=== PATIENT | male | born 1970 | race Caucasian/White ===

== ENCOUNTER 2021-04-04 18:21 | Inpatient (IN) | payer MEDICAID, SELFPAY ==
[~2021-04-04] VITALS: Ht 167.6 cm; Wt 75.7 kg
[2021-04-04 19:35] VITALS: BP_SYST 160
[2021-04-04] MEDS ORDERED: PIPERACILLIN/TAZO 3.375 GM in NS 50 ML IV ONE (20:45)
[2021-04-04] MEDS ORDERED: VANCOMYCIN HCL 1,000 MG in NS 250 ML IV ONE (20:45)
[2021-04-04] MEDS ORDERED: VANCOMYCIN HCL 1000 MG/VIAL IV ONE (20:50)
[2021-04-04] MEDS ORDERED: PIPERACILLIN/TAZOBACTAM 3.375 GM/VIAL (ZOSYN) IV ONE (20:50)
[2021-04-04 20:55] LABS: EOSINOPHILS # (AUTO) 0.2 K/uL (0.0-0.4); HEMOGLOBIN 11.8 g/dL (14.0-18.0)
[2021-04-04] MEDS ORDERED: OXYCODONE/ACETAMINOPHEN 5-325 TABLET PO ONE (21:00)
[2021-04-04 21:13] LABS: BASOPHILS # (AUTO) 0.1 K/uL (0.0-0.2); BASOPHILS % (AUTO) 0.8 % (0.0-2.0); EOSINOPHILS % (AUTO) 2.1 % (0.0-4.0); HEMATOCRIT 34.3 % (36-54); LYMPHOCYTES # (AUTO) 1.8 K/uL (1.0-5.5); LYMPHOCYTES % (AUTO) 16.8 % (20.5-51.5); MEAN CORPUSCULAR HEMOGLOBIN 29 pg (27-31); MEAN CORPUSCULAR HGB CONC 34 % (32-36); MEAN CORPUSCULAR VOLUME 84 fL (79.0-98.0); MONOCYTES # (AUTO) 0.8 K/uL (0.0-1.0); MONOCYTES % (AUTO) 6.9 % (1.7-9.3); NEUTROPHILS % (AUTO) 73.4 % (40.0-70.0); PLATELET COUNT (AUTO) 457 K/uL (130-430); RED BLOOD CELL COUNT(AUTO) 4.07 MIL/uL (4.2-6.2); RED CELL DISTRIBUTION WIDTH 13.1 % (9.0-15.0); WHITE BLOOD COUNT (AUTO) 10.9 K/uL (4.8-10.8)
[2021-04-04 21:25] LABS: INR 0.9 (0.80-1.20); PROTHROMBIN TIME 9.6 SECS (9.5-12.5)
[2021-04-04 21:30] LABS: CALCIUM 8.8 mg/dL (8.4-11.0); CREATININE 0.84 mg/dL (0.55-1.30); POTASSIUM 3.9 mmol/L (3.5-5.1)
[2021-04-04 21:36] LABS: ALBUMIN 2.8 g/dL (3.4-4.8); TOTAL BILIRUBIN 0.2 mg/dL (0.0-1.0)
[2021-04-04 22:23] LABS: ERYTHROCYTE SEDIMENTATION RATE 94 MM/HR (0-15)
[2021-04-05] MEDS ORDERED: MORPHINE 4 MG INJ. 4 MG/ML VIAL IVP ONE (01:45)
[2021-04-05] MEDS ORDERED: TEMAZEPAM 15 MG CAPSULE PO PRN (04:00)
[2021-04-05] MEDS ORDERED: ONDANSETRON HCL 4 MG/2 ML VIAL IVP PRN (04:00)
[2021-04-05] MEDS ORDERED: DEXTROSE 50% JECT 50 ML DISP.SYRIN IVP PRN (04:00)
[2021-04-05] MEDS ORDERED: MAG-AL HYDROX/SIMETH 30 ML UDC PO PRN (04:00)
[2021-04-05 06:12] VITALS: BP_SYST 137
[2021-04-05] MEDS: INSULIN REGULAR, HUMAN 100 UNITS/ML, 10 ML VIAL (humuLIN R) SUBCUT PRN ×3 (06:59→17:33)
[2021-04-05 07:49] VITALS: BP_SYST 150
[2021-04-05 09:13] LABS: BILIRUBIN,URINE NEGATIVE (NEGATIVE); CLARITY/URINE CLEAR (CLEAR); COLOR,URINE YELLOW (YELLOW); GLUCOSE,URINE NEGATIVE (NEGATIVE); KETONES,URINE NEGATIVE (NEGATIVE); LEUKOCYTE ESTERASE ,URINE NEGATIVE (NEGATIVE); NITRITE, URINE NEGATIVE (NEGATIVE); PH,URINE 5.5 (5.0-8.0); PROTEIN URINE 1+ (NEGATIVE)
[2021-04-05 09:21] LABS: BLOOD, URINE TRACE (NEGATIVE)
[2021-04-05] MEDS: ENOXAPARIN SODIUM 40 MG/0.4 ML SYRINGE SUBCUT SCH ×2 (09:21→21:22)
[2021-04-05 10:44] LABS: BACTERIA,URINE None Seen /HPF (None Seen); WBC,URINE NONE SEEN /HPF (0-3)
[2021-04-05 12:00] VITALS: BP_SYST 165
[2021-04-05] MEDS: ACETAMINOPHEN 325 MG TABLET PO PRN ×2 (12:04→18:08)
[2021-04-05] MEDS ORDERED: ACETAMINOPHEN 325 MG TABLET PO PRN (14:45)
[2021-04-05 15:31] VITALS: BP_SYST 132
[2021-04-05] MEDS ORDERED: PIPERACILLIN/TAZO 3.375/DEX-IS 50 ML IV SCH (18:00)
[2021-04-05 19:00] VITALS: BP_SYST 136
[2021-04-05] MEDS: GENTAMICIN SULFATE 350 MG in NS 100 ML IV SCH (19:30)
[2021-04-05] MEDS: CILOSTAZOL 50 MG TABLET (PLETAL) PO SCH (21:19)
[2021-04-05] MEDS: traMADol HCL HCL 50 MG TABLET (ULTRAM) PO PRN (21:36)
[2021-04-06] VITALS (8 sets, daily range): BP systolic 102–128
[2021-04-06] MEDS: traMADol HCL HCL 50 MG TABLET (ULTRAM) PO PRN (02:21)
[2021-04-06 06:42] LABS: BASOPHILS # (AUTO) 0.1 K/uL (0.0-0.2); BASOPHILS % (AUTO) 0.6 % (0.0-2.0); EOSINOPHILS # (AUTO) 0.1 K/uL (0.0-0.4); EOSINOPHILS % (AUTO) 0.9 % (0.0-4.0); HEMOGLOBIN 10.7 g/dL (14.0-18.0); LYMPHOCYTES # (AUTO) 1.5 K/uL (1.0-5.5); LYMPHOCYTES % (AUTO) 15.5 % (20.5-51.5); MEAN CORPUSCULAR HEMOGLOBIN 29 pg (27-31); MEAN CORPUSCULAR HGB CONC 35 % (32-36); MEAN CORPUSCULAR VOLUME 83 fL (79.0-98.0); MONOCYTES # (AUTO) 0.9 K/uL (0.0-1.0); MONOCYTES % (AUTO) 8.7 % (1.7-9.3); NEUTROPHILS # (AUTO) 7.4 K/uL (1.8-7.7); NEUTROPHILS % (AUTO) 74.3 % (40.0-70.0); PLATELET COUNT (AUTO) 424 K/uL (130-430); RED BLOOD CELL COUNT(AUTO) 3.72 MIL/uL (4.2-6.2); RED CELL DISTRIBUTION WIDTH 12.9 % (9.0-15.0)
[2021-04-06 06:51] LABS: CALCIUM 8.3 mg/dL (8.4-11.0); CREATININE 0.66 mg/dL (0.55-1.30); POTASSIUM 3.9 mmol/L (3.5-5.1)
[2021-04-06 07:43] LABS: PROTHROMBIN TIME 10.8 SECS (9.5-12.5)
[2021-04-06] MEDS: CILOSTAZOL 50 MG TABLET (PLETAL) PO SCH ×3 (08:59→20:42)
[2021-04-06] MEDS: ENOXAPARIN SODIUM 40 MG/0.4 ML SYRINGE SUBCUT SCH ×3 (09:00→20:38)
[2021-04-06] MEDS: ACETAMINOPHEN 325 MG TABLET PO PRN (15:33)
[2021-04-06] MEDS: INSULIN REGULAR, HUMAN 100 UNITS/ML, 10 ML VIAL (humuLIN R) SUBCUT PRN (16:51)
[2021-04-06] MEDS: GENTAMICIN SULFATE 350 MG in NS 100 ML IV SCH (20:41)
[2021-04-06] MEDS: EMOLLIENT COMBINATION NO.73 78 GM CREAM..G. TP SCH (20:43)
[2021-04-07] VITALS (7 sets, daily range): BP systolic 99–121
[2021-04-07] MEDS: EMOLLIENT COMBINATION NO.73 78 GM CREAM..G. TP SCH ×2 (09:00→21:05)
[2021-04-07] MEDS ORDERED: SEVOFLURANE 15 MIN GAS INH ONE (10:28)
[2021-04-07] MEDS ORDERED: BUPIVACAINE /PF 0.25% 30 ML VIAL INJ ONE (10:28)
[2021-04-07] MEDS ORDERED: WATER FOR IRRIGATION,STERILE 1,000 ML IRRIG.SOLN IR ONE (10:28)
[2021-04-07] MEDS ORDERED: NS 1000 ML IV.SOLN IV ONE (10:28)
[2021-04-07] MEDS ORDERED: ONDANSETRON HCL 4 MG/2 ML VIAL IVP ONE (10:28)
[2021-04-07] MEDS ORDERED: PROPOFOL 200MG/ 20ML VIAL (DIPRIVAN) IV ONE (10:28)
[2021-04-07] MEDS ORDERED: KETOROLAC TROMETHAMINE 30 MG VIAL IVP ONE (10:28)
[2021-04-07] MEDS ORDERED: MORPHINE 4 MG INJ. 4 MG/ML VIAL IVP PRN (11:00)
[2021-04-07] MEDS ORDERED: METOCLOPRAMIDE HCL 10 MG/2 ML VIAL IVP PRN (11:00)
[2021-04-07] MEDS ORDERED: KETOROLAC TROMETHAMINE 30 MG VIAL IVP PRN (11:00)
[2021-04-07] MEDS: ENOXAPARIN SODIUM 40 MG/0.4 ML SYRINGE SUBCUT SCH ×2 (13:08→21:00)
[2021-04-07] MEDS: CILOSTAZOL 50 MG TABLET (PLETAL) PO SCH ×2 (13:08→21:05)
[2021-04-07] MEDS: NACL 0.9% 1,000 ML IV SCH ×2 (13:47→23:58)
[2021-04-07] MEDS: INSULIN REGULAR, HUMAN 100 UNITS/ML, 10 ML VIAL (humuLIN R) SUBCUT PRN ×3 (13:48→21:11)
[2021-04-07] MEDS: CEFAZOLIN 2 GM IVPB PREMIX 50 ML IV SCH ×2 (16:51→23:58)
[2021-04-07] MEDS: traMADol HCL HCL 50 MG TABLET (ULTRAM) PO PRN (20:02)
[2021-04-07] MEDS: GENTAMICIN SULFATE 350 MG in NS 100 ML IV SCH (20:03)
[2021-04-07] MEDS: metroNIDAZOLE 500 mg/NS 100 ML IV SCH (21:05)
[2021-04-07] MEDS ORDERED: CEFAZOLIN 2 GM IVPB PREMIX 50 ML IV ONE (21:40)
[2021-04-08 00:13] VITALS: BP_SYST 118
[2021-04-08 07:12] LABS: BASOPHILS % (AUTO) 0.3 % (0.0-2.0); EOSINOPHILS # (AUTO) 0.2 K/uL (0.0-0.4); EOSINOPHILS % (AUTO) 1.9 % (0.0-4.0); HEMATOCRIT 33.8 % (36-54); HEMOGLOBIN 11.2 g/dL (14.0-18.0); LYMPHOCYTES # (AUTO) 1.7 K/uL (1.0-5.5); LYMPHOCYTES % (AUTO) 18.5 % (20.5-51.5); MEAN CORPUSCULAR HEMOGLOBIN 28 pg (27-31); MEAN CORPUSCULAR HGB CONC 33 % (32-36); MEAN CORPUSCULAR VOLUME 84 fL (79.0-98.0); MONOCYTES # (AUTO) 0.6 K/uL (0.0-1.0); MONOCYTES % (AUTO) 6.8 % (1.7-9.3); NEUTROPHILS # (AUTO) 6.6 K/uL (1.8-7.7); NEUTROPHILS % (AUTO) 72.5 % (40.0-70.0); PLATELET COUNT (AUTO) 466 K/uL (130-430); RED BLOOD CELL COUNT(AUTO) 4.04 MIL/uL (4.2-6.2); WHITE BLOOD COUNT (AUTO) 9.1 K/uL (4.8-10.8)
[2021-04-08 07:31] LABS: ALBUMIN 2.1 g/dL (3.4-4.8); CALCIUM 8.2 mg/dL (8.4-11.0); CREATININE 0.63 mg/dL (0.55-1.30); POTASSIUM 4.6 mmol/L (3.5-5.1); TOTAL BILIRUBIN 0.1 mg/dL (0.0-1.0)
[2021-04-08 08:00] VITALS: BP_SYST 121
[2021-04-08] MEDS: metroNIDAZOLE 500 mg/NS 100 ML IV SCH (09:00)
[2021-04-08] MEDS: NACL 0.9% 1,000 ML IV SCH (09:04)
[2021-04-08] MEDS: CILOSTAZOL 50 MG TABLET (PLETAL) PO SCH ×2 (09:04→20:08)
[2021-04-08] MEDS: traMADol HCL HCL 50 MG TABLET (ULTRAM) PO PRN (09:05)
[2021-04-08] MEDS: ENOXAPARIN SODIUM 40 MG/0.4 ML SYRINGE SUBCUT SCH ×2 (09:07→20:12)
[2021-04-08 12:45] VITALS: BP_SYST 126
[2021-04-08] MEDS: INSULIN REGULAR, HUMAN 100 UNITS/ML, 10 ML VIAL (humuLIN R) SUBCUT PRN ×3 (12:49→20:11)
[2021-04-08] MEDS ORDERED: MULTIVITS,CA,MINERALS/IRON/FA 1 TABLET PO ONE (14:00)
[2021-04-08] MEDS ORDERED: CHOLECALCIFEROL (VITAMIN D3) 2,000 UNIT TABLET PO ONE (14:00)
[2021-04-08] MEDS ORDERED: CHOLECALCIFEROL (VITAMIN D3) 2,000 UNIT TABLET PO SCH (14:45)
[2021-04-08] MEDS ORDERED: MULTIVITS,CA,MINERALS/IRON/FA 1 TABLET PO SCH (14:45)
[2021-04-08] MEDS: EMOLLIENT COMBINATION NO.73 78 GM CREAM..G. TP SCH ×2 (16:22→20:09)
[2021-04-08 16:36] VITALS: BP_SYST 121
[2021-04-08] MEDS: GENTAMICIN SULFATE 350 MG in NS 100 ML IV SCH (19:57)
[2021-04-08 20:00] VITALS: BP_SYST 122
[2021-04-08] MEDS: metroNIDAZOLE 500 MG TABLET PO SCH (20:08)
[2021-04-09] VITALS: BP_SYST 118
[2021-04-09] MEDS: INSULIN REGULAR, HUMAN 100 UNITS/ML, 10 ML VIAL (humuLIN R) SUBCUT PRN ×3 (06:02→20:13)
[2021-04-09] MEDS: traMADol HCL HCL 50 MG TABLET (ULTRAM) PO PRN ×2 (06:05→20:12)
[2021-04-09 07:36] LABS: BASOPHILS % (AUTO) 0.5 % (0.0-2.0); EOSINOPHILS # (AUTO) 0.1 K/uL (0.0-0.4); EOSINOPHILS % (AUTO) 1.5 % (0.0-4.0); HEMATOCRIT 32.2 % (36-54); HEMOGLOBIN 10.7 g/dL (14.0-18.0); LYMPHOCYTES % (AUTO) 20.8 % (20.5-51.5); MEAN CORPUSCULAR HEMOGLOBIN 28 pg (27-31); MEAN CORPUSCULAR HGB CONC 33 % (32-36); MEAN CORPUSCULAR VOLUME 84 fL (79.0-98.0); MONOCYTES # (AUTO) 0.7 K/uL (0.0-1.0); MONOCYTES % (AUTO) 7.3 % (1.7-9.3); NEUTROPHILS # (AUTO) 6.7 K/uL (1.8-7.7); NEUTROPHILS % (AUTO) 69.9 % (40.0-70.0); PLATELET COUNT (AUTO) 487 K/uL (130-430); RED BLOOD CELL COUNT(AUTO) 3.82 MIL/uL (4.2-6.2); RED CELL DISTRIBUTION WIDTH 12.7 % (9.0-15.0); WHITE BLOOD COUNT (AUTO) 9.6 K/uL (4.8-10.8)
[2021-04-09 07:58] LABS: ALBUMIN 2.1 g/dL (3.4-4.8); CALCIUM 8.6 mg/dL (8.4-11.0); CREATININE 0.7 mg/dL (0.55-1.30); POTASSIUM 4.3 mmol/L (3.5-5.1); TOTAL BILIRUBIN 0.1 mg/dL (0.0-1.0)
[2021-04-09 08:00] VITALS: BP_SYST 90
[2021-04-09] MEDS: CILOSTAZOL 50 MG TABLET (PLETAL) PO SCH ×2 (09:29→20:11)
[2021-04-09] MEDS: CHOLECALCIFEROL (VITAMIN D3) 2,000 UNIT TABLET PO SCH (09:29)
[2021-04-09] MEDS: metroNIDAZOLE 500 MG TABLET PO SCH ×2 (09:29→20:11)
[2021-04-09] MEDS: MULTIVITS,CA,MINERALS/IRON/FA 1 TABLET PO SCH (09:30)
[2021-04-09] MEDS: EMOLLIENT COMBINATION NO.73 78 GM CREAM..G. TP SCH ×2 (09:31→20:11)
[2021-04-09] MEDS: ENOXAPARIN SODIUM 40 MG/0.4 ML SYRINGE SUBCUT SCH ×2 (09:34→20:12)
[2021-04-09 12:00] VITALS: BP_SYST 110
[2021-04-09 16:06] VITALS: BP_SYST 127
[2021-04-09] MEDS: metFORMIN HCL 500 MG TABLET PO SCH (17:49)
[2021-04-09 20:00] VITALS: BP_SYST 142
[2021-04-10 00:34] VITALS: BP_SYST 105
[2021-04-10] MEDS: metFORMIN HCL 500 MG TABLET PO SCH ×2 (07:33→18:14)
[2021-04-10 08:13] VITALS: BP_SYST 126
[2021-04-10] MEDS: metroNIDAZOLE 500 MG TABLET PO SCH ×2 (09:46→20:47)
[2021-04-10] MEDS: MULTIVITS,CA,MINERALS/IRON/FA 1 TABLET PO SCH (09:47)
[2021-04-10] MEDS: traMADol HCL HCL 50 MG TABLET (ULTRAM) PO PRN ×2 (09:47→20:57)
[2021-04-10] MEDS: CILOSTAZOL 50 MG TABLET (PLETAL) PO SCH ×2 (09:47→20:47)
[2021-04-10] MEDS: CHOLECALCIFEROL (VITAMIN D3) 2,000 UNIT TABLET PO SCH (09:47)
[2021-04-10] MEDS: EMOLLIENT COMBINATION NO.73 78 GM CREAM..G. TP SCH (09:48)
[2021-04-10] MEDS: ENOXAPARIN SODIUM 40 MG/0.4 ML SYRINGE SUBCUT SCH ×2 (09:49→20:51)
[2021-04-10] MEDS: INSULIN REGULAR, HUMAN 100 UNITS/ML, 10 ML VIAL (humuLIN R) SUBCUT PRN ×2 (11:35→16:27)
[2021-04-10 12:38] VITALS: BP_SYST 99
[2021-04-10 16:41] VITALS: BP_SYST 104
[2021-04-10 20:45] VITALS: BP_SYST 100
[2021-04-10] MEDS: LOSARTAN POTASSIUM 25 MG TABLET PO SCH (20:51)
[2021-04-11] VITALS: BP_SYST 105
[2021-04-11] MEDS: EMOLLIENT COMBINATION NO.73 78 GM CREAM..G. TP SCH ×3 (05:59→20:35)
[2021-04-11 07:19] LABS: BASOPHILS % (AUTO) 0.4 % (0.0-2.0); EOSINOPHILS # (AUTO) 0.2 K/uL (0.0-0.4); EOSINOPHILS % (AUTO) 2.2 % (0.0-4.0); HEMATOCRIT 31.4 % (36-54); HEMOGLOBIN 10.5 g/dL (14.0-18.0); LYMPHOCYTES # (AUTO) 1.6 K/uL (1.0-5.5); LYMPHOCYTES % (AUTO) 20.7 % (20.5-51.5); MEAN CORPUSCULAR HEMOGLOBIN 28 pg (27-31); MEAN CORPUSCULAR HGB CONC 34 % (32-36); MEAN CORPUSCULAR VOLUME 84 fL (79.0-98.0); MONOCYTES # (AUTO) 0.5 K/uL (0.0-1.0); MONOCYTES % (AUTO) 6.5 % (1.7-9.3); NEUTROPHILS # (AUTO) 5.5 K/uL (1.8-7.7); NEUTROPHILS % (AUTO) 70.2 % (40.0-70.0); PLATELET COUNT (AUTO) 523 K/uL (130-430); RED BLOOD CELL COUNT(AUTO) 3.77 MIL/uL (4.2-6.2); RED CELL DISTRIBUTION WIDTH 13.1 % (9.0-15.0); WHITE BLOOD COUNT (AUTO) 7.8 K/uL (4.8-10.8)
[2021-04-11] MEDS: metFORMIN HCL 500 MG TABLET PO SCH ×2 (07:45→18:09)
[2021-04-11] MEDS: traMADol HCL HCL 50 MG TABLET (ULTRAM) PO PRN (07:46)
[2021-04-11 08:27] VITALS: BP_SYST 95
[2021-04-11] MEDS: CILOSTAZOL 50 MG TABLET (PLETAL) PO SCH ×2 (08:59→20:33)
[2021-04-11] MEDS: CHOLECALCIFEROL (VITAMIN D3) 2,000 UNIT TABLET PO SCH (08:59)
[2021-04-11] MEDS: metroNIDAZOLE 500 MG TABLET PO SCH ×2 (08:59→20:33)
[2021-04-11] MEDS: MULTIVITS,CA,MINERALS/IRON/FA 1 TABLET PO SCH (08:59)
[2021-04-11] MEDS: ENOXAPARIN SODIUM 40 MG/0.4 ML SYRINGE SUBCUT SCH ×2 (09:01→20:38)
[2021-04-11 09:38] LABS: ERYTHROCYTE SEDIMENTATION RATE 103 MM/HR (0-15)
[2021-04-11 11:51] LABS: CALCIUM 8.3 mg/dL (8.4-11.0); CREATININE 0.72 mg/dL (0.55-1.30); POTASSIUM 4.3 mmol/L (3.5-5.1)
[2021-04-11 12:50] VITALS: BP_SYST 94
[2021-04-11 16:33] VITALS: BP_SYST 103
[2021-04-11 19:56] VITALS: BP_SYST 102
[2021-04-11] MEDS: LOSARTAN POTASSIUM 25 MG TABLET PO SCH (20:34)
[2021-04-11 23:31] VITALS: BP_SYST 100
[2021-04-12 08:07] VITALS: BP_SYST 95
[2021-04-12] MEDS: metroNIDAZOLE 500 MG TABLET PO SCH ×2 (09:12→21:30)
[2021-04-12] MEDS: MULTIVITS,CA,MINERALS/IRON/FA 1 TABLET PO SCH (09:12)
[2021-04-12] MEDS: CILOSTAZOL 50 MG TABLET (PLETAL) PO SCH ×2 (09:12→21:30)
[2021-04-12] MEDS: metFORMIN HCL 500 MG TABLET PO SCH ×2 (09:12→17:58)
[2021-04-12] MEDS: CHOLECALCIFEROL (VITAMIN D3) 2,000 UNIT TABLET PO SCH (09:13)
[2021-04-12] MEDS: EMOLLIENT COMBINATION NO.73 78 GM CREAM..G. TP SCH ×2 (09:13→21:30)
[2021-04-12] MEDS: ENOXAPARIN SODIUM 40 MG/0.4 ML SYRINGE SUBCUT SCH ×2 (09:18→21:33)
[2021-04-12] MEDS: INSULIN REGULAR, HUMAN 100 UNITS/ML, 10 ML VIAL (humuLIN R) SUBCUT PRN (11:55)
[2021-04-12 12:09] VITALS: BP_SYST 93
[2021-04-12 20:00] VITALS: BP_SYST 102
[2021-04-12] MEDS: LOSARTAN POTASSIUM 25 MG TABLET PO SCH (21:29)
[2021-04-13] VITALS (7 sets, daily range): BP systolic 98–110
[2021-04-13] MEDS: EMOLLIENT COMBINATION NO.73 78 GM CREAM..G. TP SCH ×2 (09:00→20:18)
[2021-04-13] MEDS: metroNIDAZOLE 500 MG TABLET PO SCH ×2 (09:32→20:16)
[2021-04-13] MEDS: MULTIVITS,CA,MINERALS/IRON/FA 1 TABLET PO SCH (09:32)
[2021-04-13] MEDS: CILOSTAZOL 50 MG TABLET (PLETAL) PO SCH ×2 (09:32→20:16)
[2021-04-13] MEDS: CHOLECALCIFEROL (VITAMIN D3) 2,000 UNIT TABLET PO SCH (09:33)
[2021-04-13] MEDS: metFORMIN HCL 500 MG TABLET PO SCH ×2 (09:33→17:36)
[2021-04-13] MEDS: ENOXAPARIN SODIUM 40 MG/0.4 ML SYRINGE SUBCUT SCH (09:36)
[2021-04-13] MEDS: INSULIN REGULAR, HUMAN 100 UNITS/ML, 10 ML VIAL (humuLIN R) SUBCUT PRN ×2 (11:42→20:21)
[2021-04-13] MEDS: LOSARTAN POTASSIUM 25 MG TABLET PO SCH (20:16)
== END 2021-04-13 22:23 | disposition short-term general hospital (02) | DRG 710 ==
LOC: SED 18:21 → SIC 04-05 01:06 → SMU 04-05 01:07
PROVIDERS: ADMIT Internal Medicine; ATTEND Internal Medicine
PROC: 0Y6P0Z0 Detachment at Right 1st Toe, Complete, Open Approach (ICD-10-PCS; principal; 2021-04-07 10:53)
DX: A41.50 Gram-negative sepsis, unspecified (principal); E43 Unspecified severe protein-calorie malnutrition; E11.52 Type 2 diabetes mellitus with diabetic peripheral angiopathy with gangrene; E11.42 Type 2 diabetes mellitus with diabetic polyneuropathy; I96 Gangrene, not elsewhere classified; M86.8X7 Other osteomyelitis, ankle and foot; D64.9 Anemia, unspecified; E11.69 Type 2 diabetes mellitus with other specified complication; E11.65 Type 2 diabetes mellitus with hyperglycemia; Z20.822 Contact with and (suspected) exposure to COVID-19; I10 Essential (primary) hypertension; E78.5 Hyperlipidemia, unspecified; Z68.27 Body mass index [BMI] 27.0-27.9, adult
CPT/HCPCS: 36415; 71045; 73706; 76376; 80048; 80053; 80061; 80170; 81000; 82962; 83036; 83605; 85025; 85610-TC; 85651-TC; 85730-TC; 87040-TC; 87081; 88305; 88311; 93005; 93922; 96365; 96375; 99285; J0690; J0696; J1580; J1650; J1815; J1885; J2270; J2405; J2543; J2704; J3370; J3490; J7030; J7060; Q9967

== ENCOUNTER 2021-05-24 12:22 | Inpatient (IN) | payer MEDICAID, SELFPAY ==
[~2021-05-24] VITALS: Ht 167.6 cm; Wt 74.8 kg
--- NOTE | 2021-05-24 12:30 | NUR ---
Pt triaged and placed in waiting room.
[2021-05-24 13:36] VITALS: BP_SYST 154
--- NOTE | 2021-05-24 16:25 | NUR ---
Patient awake, alert and oriented x 3. Reporting drainage from great toe amputation (done in March) and that area "bleeds" when patient walks. Awaiting MD evaluation.
--- NOTE | 2021-05-24 19:12 | NUR ---
Report given to Ena ECHOLS to assume care of patient
--- NOTE | 2021-05-24 20:30 | NUR ---
Seen by Dr. Balderas with orders given/ carried out.Labs drawn.
[2021-05-24 20:50] LABS: BASOPHILS # (AUTO) 0.1 K/uL (0.0-0.2); BASOPHILS % (AUTO) 0.7 % (0.0-2.0); EOSINOPHILS # (AUTO) 0.2 K/uL (0.0-0.4); EOSINOPHILS % (AUTO) 1.8 % (0.0-4.0); LYMPHOCYTES # (AUTO) 1.8 K/uL (1.0-5.5); LYMPHOCYTES % (AUTO) 16.9 % (20.5-51.5); MEAN CORPUSCULAR HEMOGLOBIN 27 pg (27-31); MEAN CORPUSCULAR HGB CONC 33 % (32-36); MEAN CORPUSCULAR VOLUME 81 fL (79.0-98.0); MONOCYTES # (AUTO) 0.6 K/uL (0.0-1.0); MONOCYTES % (AUTO) 5.3 % (1.7-9.3); NEUTROPHILS # (AUTO) 7.9 K/uL (1.8-7.7); NEUTROPHILS % (AUTO) 75.3 % (40.0-70.0); PLATELET COUNT (AUTO) 509 K/uL (130-430); RED BLOOD CELL COUNT(AUTO) 4.09 MIL/uL (4.2-6.2); RED CELL DISTRIBUTION WIDTH 14.3 % (9.0-15.0); WHITE BLOOD COUNT (AUTO) 10.5 K/uL (4.8-10.8)
[2021-05-24 21:05] LABS: CREATININE 0.63 mg/dL (0.55-1.30)
[2021-05-24 21:16] LABS: ALBUMIN 2.7 g/dL (3.4-4.8); TOTAL BILIRUBIN 0.3 mg/dL (0.0-1.0)
[2021-05-24 21:38] LABS: PROTHROMBIN TIME 10.2 SECS (9.5-12.5)
[2021-05-24 22:25] LABS: BILIRUBIN,URINE NEGATIVE (NEGATIVE); BLOOD, URINE NEGATIVE (NEGATIVE); CLARITY/URINE CLEAR (CLEAR); COLOR,URINE YELLOW (YELLOW); GLUCOSE,URINE NEGATIVE (NEGATIVE); KETONES,URINE NEGATIVE (NEGATIVE); LEUKOCYTE ESTERASE ,URINE NEGATIVE (NEGATIVE); NITRITE, URINE NEGATIVE (NEGATIVE); PH,URINE 5.5 (5.0-8.0); PROTEIN URINE 2+ (NEGATIVE); UROBILINOGEN,URINE 0.2 (0.2-1.0)
[2021-05-24 22:53] LABS: BACTERIA,URINE RARE /HPF (None Seen); MUCUS,URINE None Seen /LPF (None Seen); RBC,URINE 0-3 /HPF (0-3); WBC,URINE 0-3 /HPF (0-3)
[2021-05-25] MEDS ORDERED: VANCOMYCIN HCL 1,000 MG in NS 250 ML IV ONE (01:30)
[2021-05-25] MEDS: NACL 0.9% 1,000 ML IV SCH ×2 (02:30→14:44)
--- NOTE | 2021-05-25 07:10 | NUR ---
REPORT RECEIVED FROM SOLAR PV INSTALLER RN, PT IS RESTING IN JUAN LUIS VIRGEN, NO DISTRESS NOTED, V/S STABLE
--- NOTE | 2021-05-25 07:22 | NUR ---
EMAR REVIEWED AND SOME MEDICATIONS WERE NOT DOCUMENTED. PER PREVIOUS RN, ALL MEDS WERE GIVEN.
[2021-05-25] MEDS ORDERED: POTASSIUM CHLORIDE 20 MEQ TAB.PRT.SR PO PRN (07:30)
[2021-05-25] MEDS ORDERED: ZOLPIDEM TARTRATE 5 MG TABLET PO PRN (07:30)
[2021-05-25] MEDS ORDERED: LORazepam 2 MG/ML VIAL IVP PRN (07:30)
[2021-05-25] MEDS ORDERED: ONDANSETRON HCL 4 MG/2 ML VIAL IVP PRN (07:30)
[2021-05-25] MEDS ORDERED: MAGNESIUM SULFATE 50 ML IV PRN (07:30)
[2021-05-25] MEDS ORDERED: MORPHINE 2 MG/ML INJ. SYRINGE IVP PRN (07:30)
[2021-05-25] MEDS ORDERED: ACETAMINOPHEN 325 MG TABLET PO PRN (07:30)
[2021-05-25] MEDS ORDERED: NALOXONE HCL 0.4 MG/ML AMP (NARCAN) IVP PRN ×2 (07:30)
[2021-05-25] MEDS ORDERED: MUPIROCIN 2% TOPICAL OINTMENT 22 GM NS PRN (07:30)
[2021-05-25] MEDS ORDERED: cefTRIAXone 1 GM IVPB PREMIX 50 ML IV SCH (09:00)
--- NOTE | 2021-05-25 09:01 | NUR ---
BREAKFAST TRAY PROVIDED TO PT
[2021-05-25] MEDS: GABAPENTIN 300 MG CAPSULE PO SCH ×3 (09:41→23:25)
[2021-05-25] MEDS: HEPARIN SODIUM,PORCINE 5,000 UNITS/ML VIAL SUBCUT SCH ×2 (09:41→23:29)
--- NOTE | 2021-05-25 10:30 | NUR ---
PT AMBULATES WITH WALKER TO BATHROOM WITH STEADY GAIT
--- NOTE | 2021-05-25 11:30 | NUR ---
Patient will be admitted to care of DR. VALENTIN. Admitted to TELE unit. Will go to room 116B. Belongings list completed. Complete and up to date summary report printed. SBAR report to be given at bedside with opportunity for questions.
[2021-05-25 12:15] VITALS: BP_SYST 113
--- NOTE | 2021-05-25 12:15 | NUR ---
NOTE Pt arrived to floor from ER via gurney. Pt able to ambulate from gurney to bed in room with his FWW. Pt was oriented to room and nursing routines and procedures. Oriented to call light. Questions/concerns were answered. Call light within reach.
--- NOTE | 2021-05-25 12:46 | NUR ---
CONSULTATION PAGED/CALLED Reason for Consultation: [] R FOOT CELLULITIS; S/P AMPUTATION Person Who was Notified: [] LORENZO Consulting Physician: [] DR SORIA Marketing Planner Specialty: [] GEN SURGEON Ordering Physician: [] DR VALENTIN
[2021-05-25] MEDS: VANCOMYCIN HCL 1,250 MG in NS 250 ML IV SCH (14:44)
[2021-05-25 15:33] VITALS: BP_SYST 113
[2021-05-25 16:00] VITALS: BP_SYST 101
[2021-05-25] MEDS: INSULIN REGULAR, HUMAN 100 UNITS/ML, 10 ML VIAL (humuLIN R) SUBCUT PRN (17:20)
--- NOTE | 2021-05-25 18:50 | NUR ---
Note Pt was checked on q1' and PRN all shift for needs and care.Pt's bed in low position and bed alarm on all shift. Pt's PCR test was sent to lab at 1645. Pt's right big toe incision/wound site was photographed and wrapped with dressing. IV in RAC intact and patent infusing IVF's well. Pt has urinal at bedside to void. Tele unit was applied on admission to floor/bed at 1210pm. No needs noted at this time. Call light within reach.
[2021-05-25 20:00] VITALS: BP_SYST 119
[2021-05-26 00:05] VITALS: BP_SYST 111
[2021-05-26] MEDS: VANCOMYCIN HCL 1,250 MG in NS 250 ML IV SCH ×2 (02:41→15:15)
[2021-05-26] MEDS: NACL 0.9% 1,000 ML IV SCH ×2 (02:42→16:00)
[2021-05-26] MEDS: INSULIN REGULAR, HUMAN 100 UNITS/ML, 10 ML VIAL (humuLIN R) SUBCUT PRN (02:46)
[2021-05-26 06:54] LABS: BASOPHILS % (AUTO) 0.4 % (0.0-2.0); EOSINOPHILS # (AUTO) 0.3 K/uL (0.0-0.4); EOSINOPHILS % (AUTO) 3.1 % (0.0-4.0); HEMATOCRIT 32.2 % (36-54); HEMOGLOBIN 10.6 g/dL (14.0-18.0); LYMPHOCYTES # (AUTO) 1.6 K/uL (1.0-5.5); LYMPHOCYTES % (AUTO) 19.2 % (20.5-51.5); MEAN CORPUSCULAR HEMOGLOBIN 27 pg (27-31); MEAN CORPUSCULAR HGB CONC 33 % (32-36); MEAN CORPUSCULAR VOLUME 83 fL (79.0-98.0); MONOCYTES # (AUTO) 0.5 K/uL (0.0-1.0); MONOCYTES % (AUTO) 5.5 % (1.7-9.3); NEUTROPHILS # (AUTO) 6.1 K/uL (1.8-7.7); NEUTROPHILS % (AUTO) 71.8 % (40.0-70.0); PLATELET COUNT (AUTO) 460 K/uL (130-430); RED CELL DISTRIBUTION WIDTH 14.2 % (9.0-15.0); WHITE BLOOD COUNT (AUTO) 8.5 K/uL (4.8-10.8)
[2021-05-26 07:25] LABS: ALBUMIN 2.1 g/dL (3.4-4.8); CALCIUM 8.3 mg/dL (8.4-11.0); CREATININE 0.65 mg/dL (0.55-1.30); POTASSIUM 4.5 mmol/L (3.5-5.1); TOTAL BILIRUBIN 0.2 mg/dL (0.0-1.0)
--- NOTE | 2021-05-26 07:44 | NUR ---
PATIENTS GLUCOSE CHECK WAS PERFORMED AT 1230, PATIENTS FINGER STICK GLUCOSE LEVEL WAS 214
[2021-05-26 07:53] VITALS: BP_SYST 118
[2021-05-26] MEDS: HEPARIN SODIUM,PORCINE 5,000 UNITS/ML VIAL SUBCUT SCH ×2 (09:00→22:42)
[2021-05-26] MEDS: GABAPENTIN 300 MG CAPSULE PO SCH ×3 (09:00→22:33)
--- NOTE | 2021-05-26 09:34 | NUR ---
Consult ID Right foot osteo Dr. Chaves [phone] S/w [facility] office
--- NOTE | 2021-05-26 09:36 | NUR ---
Consult Surgery Jason Echeverria [phone] S/W [facility] Office
--- NOTE | 2021-05-26 10:44 | NUR ---
Nutrition Update : Robin Scale: 18 noted Pt admitted for L. foot cellulitis. Diet: [facility] BMI: 26.6 kg/m2 RD to follow per nutrition care standards.
[2021-05-26 13:05] VITALS: BP_SYST 138
[2021-05-26] MEDS ORDERED: MIDAZOLAM HCL 5 MG/5 ML VIAL IVP ONE (15:50)
[2021-05-26] MEDS ORDERED: PROPOFOL 200MG/ 20ML VIAL (DIPRIVAN) IV ONE (15:50)
[2021-05-26] MEDS ORDERED: BUPIVACAINE /PF 0.25% 30 ML VIAL INJ ONE (15:50)
[2021-05-26] MEDS ORDERED: NS 1000 ML IV.SOLN IV ONE (15:50)
[2021-05-26] MEDS ORDERED: SEVOFLURANE 15 MIN GAS INH ONE (15:50)
[2021-05-26] MEDS ORDERED: NS IRRIG SOLN 1000 ML IR ONE (15:50)
[2021-05-26] MEDS ORDERED: ONDANSETRON HCL 4 MG/2 ML VIAL IVP PRN (17:00)
[2021-05-26] MEDS ORDERED: fentaNYL CITRATE/PF 100 MCG/2 ML AMP IVP PRN ×2 (17:00)
[2021-05-26] MEDS ORDERED: METOCLOPRAMIDE HCL 10 MG/2 ML VIAL IVP PRN (17:00)
[2021-05-26 18:05] VITALS: BP_SYST 107
--- NOTE | 2021-05-26 18:14 | NUR ---
BACK FROM OR Pt back from OR in no distress, AAOx4, no c/o pain or discomfort. Received report from Sheyla ECHOLS, noted dressing to pt's right foot clean, dry and intact, right foot elevated on pillows. Vital signs taken, stable. Call light within reah.
[2021-05-26] MEDS: CLINDAMYCIN 600 MG in D5W 50 ML IV SCH (19:04)
--- NOTE | 2021-05-26 19:35 | NUR ---
CLOSING NOTE Pt resting quietly in bed with no s/s resp distress, no c/o pain or discomfort. IVPB infusing well to RAC at ordered rate with no s/s infiltration to site. Dressing to right foot clean, dry and intact. Needs met, call light within reach.
[2021-05-26 20:30] VITALS: BP_SYST 135
[2021-05-26] MEDS ORDERED: CEFEPIME 2 GM/VIAL (MAXIPIME) ONE (22:23)
[2021-05-26] MEDS: CEFEPIME 2 GM in D5W 100 ML IV SCH (22:32)
[2021-05-27] VITALS: BP_SYST 132
[2021-05-27] MEDS: MORPHINE 2 MG/ML INJ. SYRINGE IVP PRN (00:43)
[2021-05-27] MEDS: INSULIN REGULAR, HUMAN 100 UNITS/ML, 10 ML VIAL (humuLIN R) SUBCUT PRN ×2 (00:44→12:22)
[2021-05-27] MEDS: CLINDAMYCIN 600 MG in D5W 50 ML IV SCH ×4 (01:02→17:34)
[2021-05-27] MEDS: VANCOMYCIN HCL 1,250 MG in NS 250 ML IV SCH ×2 (03:40→15:35)
[2021-05-27] MEDS: NACL 0.9% 1,000 ML IV SCH ×2 (03:42→16:56)
[2021-05-27 07:40] LABS: BASOPHILS % (AUTO) 0.6 % (0.0-2.0); EOSINOPHILS # (AUTO) 0.2 K/uL (0.0-0.4); HEMATOCRIT 29.6 % (36-54); HEMOGLOBIN 9.9 g/dL (14.0-18.0); LYMPHOCYTES # (AUTO) 1.6 K/uL (1.0-5.5); LYMPHOCYTES % (AUTO) 19.6 % (20.5-51.5); MEAN CORPUSCULAR HEMOGLOBIN 27 pg (27-31); MEAN CORPUSCULAR HGB CONC 33 % (32-36); MEAN CORPUSCULAR VOLUME 81 fL (79.0-98.0); MONOCYTES # (AUTO) 0.6 K/uL (0.0-1.0); MONOCYTES % (AUTO) 7.9 % (1.7-9.3); NEUTROPHILS # (AUTO) 5.7 K/uL (1.8-7.7); NEUTROPHILS % (AUTO) 69.9 % (40.0-70.0); PLATELET COUNT (AUTO) 414 K/uL (130-430); RED BLOOD CELL COUNT(AUTO) 3.65 MIL/uL (4.2-6.2); RED CELL DISTRIBUTION WIDTH 14.3 % (9.0-15.0); WHITE BLOOD COUNT (AUTO) 8.2 K/uL (4.8-10.8)
[2021-05-27 08:09] LABS: CALCIUM 7.9 mg/dL (8.4-11.0); CREATININE 0.53 mg/dL (0.55-1.30)
[2021-05-27 08:17] VITALS: BP_SYST 122
[2021-05-27] MEDS: GABAPENTIN 300 MG CAPSULE PO SCH ×3 (08:28→22:00)
[2021-05-27] MEDS: HEPARIN SODIUM,PORCINE 5,000 UNITS/ML VIAL SUBCUT SCH ×2 (08:29→22:05)
[2021-05-27] MEDS: CEFEPIME 2 GM in D5W 100 ML IV SCH ×2 (09:38→22:00)
[2021-05-27 12:00] VITALS: BP_SYST 128
[2021-05-27 16:25] VITALS: BP_SYST 124
[2021-05-27 19:00] VITALS: BP_SYST 133
[2021-05-27 20:00] VITALS: BP_SYST 120
[2021-05-28] VITALS: BP_SYST 123
[2021-05-28] MEDS: CLINDAMYCIN 600 MG in D5W 50 ML IV SCH ×2 (00:06→05:42)
[2021-05-28] MEDS: VANCOMYCIN HCL 1,250 MG in NS 250 ML IV SCH ×2 (02:47→14:51)
[2021-05-28] MEDS: NACL 0.9% 1,000 ML IV SCH ×2 (05:42→18:00)
[2021-05-28 07:09] VITALS: BP_SYST 123
[2021-05-28 08:05] VITALS: BP_SYST 104
--- NOTE | 2021-05-28 08:05 | NUR ---
Patient stable; resting comfortably in bed with no distress noted at this time.
[2021-05-28] MEDS: GABAPENTIN 300 MG CAPSULE PO SCH ×3 (08:43→20:44)
[2021-05-28] MEDS: HEPARIN SODIUM,PORCINE 5,000 UNITS/ML VIAL SUBCUT SCH ×2 (08:44→20:45)
[2021-05-28] MEDS: CEFEPIME 2 GM in D5W 100 ML IV SCH ×2 (08:47→20:45)
--- NOTE | 2021-05-28 08:47 | NUR ---
Scheduled IV abx, subq, and po medications given per order. Patient stable at this time.
[2021-05-28 08:49] LABS: BASOPHILS % (AUTO) 0.4 % (0.0-2.0); EOSINOPHILS # (AUTO) 0.1 K/uL (0.0-0.4); EOSINOPHILS % (AUTO) 2.2 % (0.0-4.0); HEMATOCRIT 29.1 % (36-54); HEMOGLOBIN 9.6 g/dL (14.0-18.0); LYMPHOCYTES # (AUTO) 2.6 K/uL (1.0-5.5); MEAN CORPUSCULAR HEMOGLOBIN 27 pg (27-31); MEAN CORPUSCULAR HGB CONC 33 % (32-36); MEAN CORPUSCULAR VOLUME 81 fL (79.0-98.0); MONOCYTES # (AUTO) 0.7 K/uL (0.0-1.0); MONOCYTES % (AUTO) 10.5 % (1.7-9.3); NEUTROPHILS # (AUTO) 3.3 K/uL (1.8-7.7); NEUTROPHILS % (AUTO) 48.9 % (40.0-70.0); PLATELET COUNT (AUTO) 415 K/uL (130-430); RED BLOOD CELL COUNT(AUTO) 3.62 MIL/uL (4.2-6.2); RED CELL DISTRIBUTION WIDTH 14.3 % (9.0-15.0); WHITE BLOOD COUNT (AUTO) 6.8 K/uL (4.8-10.8)
[2021-05-28 09:15] LABS: CALCIUM 8.1 mg/dL (8.4-11.0); CREATININE 0.53 mg/dL (0.55-1.30)
--- NOTE | 2021-05-28 09:37 | NUR ---
Patient stable; resting comfortably in bed with no distress noted.
--- NOTE | 2021-05-28 10:32 | NUR ---
Discharge Planning: DCP faxed pt referral to [facility]-[phone] N-[phone] DCP to follow up. Addendum: 05/28/21 at 1645 by Ofelia Diego DP DCP followed up with [facility]-[phone] [phone] also called [phone] opt#3 no progress reaching a CM.
--- NOTE | 2021-05-28 10:35 | NUR ---
Patient stable; resting comfortably in bed with eyes closed. No distress noted at this time.
--- NOTE | 2021-05-28 12:07 | NUR ---
Checked blood sugar: 209 mg/dl - will cover per sliding scale. Patient stable at this time.
[2021-05-28 12:10] VITALS: BP_SYST 124
--- NOTE | 2021-05-28 12:50 | NUR ---
Patient resting comfortably in bed with Dr. Sharpe at bedside.
--- NOTE | 2021-05-28 13:00 | NUR ---
Covered per sliding scale. Patient stable; resting comfortably in bed.
[2021-05-28] MEDS: INSULIN REGULAR, HUMAN 100 UNITS/ML, 10 ML VIAL (humuLIN R) SUBCUT PRN ×2 (13:02→18:56)
--- NOTE | 2021-05-28 14:40 | NUR ---
WOUND EVALUATION: Late note for 1440 secondary to patient care. Wound Consult received from Dr. Bourgeois. Thank you, Dr. Bourgeois, for the consult. Patient received in a [place] Bed with an Isoflex BRAD mattress, awake, alert, and oriented. Patient is able to turn in bed independently. Robin Score is a 17. Past Medical History: Diabetes Mellitus, Hypertension, Dyslipidemia, Peripheral Vascular Disease, right toe amputation in March,. Recent Labs: WBC 6.8, RBC 3.62, hemoglobin 9.6, hematocrit 29.1, ESR 99, BUN 12, creatinine 0.53, GFR 174, POC glucose 209, calcium 8.1, alkaline phosphatase 126, albumin 2.1. Microbiology: Blood culture results x2 in progress. Urine culture results negative. Wound culture of foot results in progress. Surgical wound culture results in progress. MRSA screen results negative. Intrinsic factors that delay wound healing: Diabetes Mellitus, Peripheral Vascular Disease, Extrinsic factors that delay wound healing: Decreased mobility. Wound Assessment: 1. Right Foot First Metatarsal head, Medial aspect: Diabetic Ulcer surgical wound site (s/p right toe amputation in March,), present on admission. Wound is s/p debridement by Dr. Bourgeois on 05/26/2021. Wound site is surgically closed with sutures and scattered black scab material. Small open area, possibly dehisced with 100% red tissue. No odor, scant sanguineous drainage. Meryl-wound intact. Open area measures 0.5 cm x 6.5 cm. Recommend: Cleanse wound with normal saline. Apply SurePrep to meryl-wound. Apply Venelex ointment to only open wound area(s). Cover with foam dressing and wrap with same Justin wrap used in site 2. Perform wound care daily, and as needed for dressing soiling or dislodgement. 2. Right Foot Fifth Metatarsal head, Plantar aspect: Diabetic ulcer, present on admission. Wound bed has 45% black eschar, 50% dark red tissue, 5% yellow tissue. No odor, scant sanguineous drainage. Periwound intact, callused. Wound measures 4.1 cm x 4.8 cm. Recommend: Cleanse wound with normal saline. Apply SurePrep to meryl-wound. Apply Venelex ointment to wound bed. Cover with foam dressing and wrap with same Justin wrap used in site 1. Perform wound care daily, and as needed for dressing soiling or dislodgement. Also recommend: Encourage patient to self-reposition every 2 hours. Off-load pressure areas with pillows for pressure re-distribution. Offload, elevate and float bilateral heels with pillows. Perform skin care and monitor skin integrity Q shift. Recommend same treatment for home with possible home health: Cleanse wound with normal saline. Apply SurePrep to meryl-wound. Apply Venelex ointment to wound bed. Cover with foam dressing and wrap with same Justin wrap used in site 1. Perform wound care daily, and as needed for dressing soiling or dislodgement.
--- NOTE | 2021-05-28 14:40 | NUR ---
Patient stable with Jeff (wound care) at bedside.
[2021-05-28] MEDS ORDERED: CLOPIDOGREL BISULFATE 75 MG TABLET PO ONE (14:45)
[2021-05-28] MEDS ORDERED: ASPIRIN 81 MG TABLET(ECOTRIN) PO ONE (14:45)
--- NOTE | 2021-05-28 14:52 | NUR ---
Scheduled IV abx and po medications given per order. Patient stable at this time.
[2021-05-28 16:10] VITALS: BP_SYST 122
--- NOTE | 2021-05-28 18:24 | NUR ---
Checked blood sugar: 184 mg/dl - will cover per sliding scale. Patient stable throughout shift. Addendum: 05/28/21 at 1857 by Lanette Donnelly RN Covered per sliding scale: 2 units
[2021-05-28] MEDS: BALSAM PERU/CASTOR OIL 56.7 GM OINT...G. TP SCH (18:55)
--- NOTE | 2021-05-28 18:55 | NUR ---
Dressing changed on right foot per wound care instructions. Patient tolerated well.
[2021-05-28 19:00] VITALS: BP_SYST 110
[2021-05-28] MEDS: MORPHINE 2 MG/ML INJ. SYRINGE IVP PRN (20:54)
[2021-05-29] VITALS: BP_SYST 133
[2021-05-29] MEDS: NACL 0.9% 1,000 ML IV SCH ×2 (06:09→20:37)
[2021-05-29] MEDS: VANCOMYCIN HCL 1,250 MG in NS 250 ML IV SCH ×2 (06:10→15:01)
[2021-05-29 07:48] LABS: BASOPHILS % (AUTO) 0.7 % (0.0-2.0); EOSINOPHILS # (AUTO) 0.2 K/uL (0.0-0.4); EOSINOPHILS % (AUTO) 2.9 % (0.0-4.0); HEMOGLOBIN 10.1 g/dL (14.0-18.0); LYMPHOCYTES % (AUTO) 28.5 % (20.5-51.5); MEAN CORPUSCULAR HEMOGLOBIN 27 pg (27-31); MEAN CORPUSCULAR HGB CONC 34 % (32-36); MEAN CORPUSCULAR VOLUME 80 fL (79.0-98.0); MONOCYTES # (AUTO) 0.5 K/uL (0.0-1.0); NEUTROPHILS # (AUTO) 4.2 K/uL (1.8-7.7); NEUTROPHILS % (AUTO) 60.9 % (40.0-70.0); PLATELET COUNT (AUTO) 429 K/uL (130-430); RED BLOOD CELL COUNT(AUTO) 3.74 MIL/uL (4.2-6.2); RED CELL DISTRIBUTION WIDTH 14.1 % (9.0-15.0); WHITE BLOOD COUNT (AUTO) 6.9 K/uL (4.8-10.8)
[2021-05-29 08:00] VITALS: BP_SYST 103
[2021-05-29 09:28] LABS: CALCIUM 8.3 mg/dL (8.4-11.0); CREATININE 0.67 mg/dL (0.55-1.30); POTASSIUM 4.3 mmol/L (3.5-5.1)
[2021-05-29] MEDS: CEFEPIME 2 GM in D5W 100 ML IV SCH ×2 (10:18→20:40)
[2021-05-29] MEDS: CLOPIDOGREL BISULFATE 75 MG TABLET PO SCH (10:19)
[2021-05-29] MEDS: ASPIRIN 81 MG TABLET(ECOTRIN) PO SCH (10:19)
[2021-05-29] MEDS: GABAPENTIN 300 MG CAPSULE PO SCH ×3 (10:19→20:37)
[2021-05-29] MEDS: HEPARIN SODIUM,PORCINE 5,000 UNITS/ML VIAL SUBCUT SCH ×2 (10:20→20:42)
[2021-05-29] MEDS: INSULIN REGULAR, HUMAN 100 UNITS/ML, 10 ML VIAL (humuLIN R) SUBCUT PRN ×2 (12:08→16:42)
[2021-05-29 12:27] VITALS: BP_SYST 125
[2021-05-29] MEDS: BALSAM PERU/CASTOR OIL 56.7 GM OINT...G. TP SCH (15:08)
--- NOTE | 2021-05-29 15:36 | NUR ---
Dietitian Recommendations * [facility] diet, Perez BID, Prosource BID (supplements yield 300 kcal/day, 35 gm protein/day) ANIBAL, MAKAYLA Please refer to Nutrition Assessment for details. Addendum: 05/29/21 at [address] Amended: Links added.
[2021-05-29 16:44] VITALS: BP_SYST 115
--- NOTE | 2021-05-29 18:00 | NUR ---
NOTES 0800- IV ON LAC DC'D, IV FLUIDS TRANSFERRED TO RIGHT UPPER ARM PICCLINE. 1200- TOOK LUNCH 1500- SEEN BY DR FERNANDO, FOR V DOPPLER DUE TO PREVIOUS IV SITE SWOLLEN BELOW THE PICCLINE. 1700- NEW DRESSING CHANGED ON RIGHT FOOT AREA. PATIENT HAS OLD SORE ON BOTH LOWER EXTREMITIES/ SCAB LE KNEE.
[2021-05-29 20:00] VITALS: BP_SYST 123
[2021-05-30] VITALS: BP_SYST 125
[2021-05-30] MEDS: VANCOMYCIN HCL 1,250 MG in NS 250 ML IV SCH ×2 (06:17→16:04)
[2021-05-30 07:44] LABS: BASOPHILS % (AUTO) 0.4 % (0.0-2.0); EOSINOPHILS # (AUTO) 0.2 K/uL (0.0-0.4); EOSINOPHILS % (AUTO) 3.5 % (0.0-4.0); HEMATOCRIT 29.6 % (36-54); HEMOGLOBIN 9.8 g/dL (14.0-18.0); LYMPHOCYTES % (AUTO) 29.6 % (20.5-51.5); MEAN CORPUSCULAR HEMOGLOBIN 27 pg (27-31); MEAN CORPUSCULAR HGB CONC 33 % (32-36); MEAN CORPUSCULAR VOLUME 81 fL (79.0-98.0); MONOCYTES # (AUTO) 0.5 K/uL (0.0-1.0); MONOCYTES % (AUTO) 7.1 % (1.7-9.3); NEUTROPHILS # (AUTO) 4.1 K/uL (1.8-7.7); NEUTROPHILS % (AUTO) 59.4 % (40.0-70.0); PLATELET COUNT (AUTO) 412 K/uL (130-430); RED BLOOD CELL COUNT(AUTO) 3.65 MIL/uL (4.2-6.2); RED CELL DISTRIBUTION WIDTH 14.4 % (9.0-15.0); WHITE BLOOD COUNT (AUTO) 6.9 K/uL (4.8-10.8)
[2021-05-30 07:53] LABS: CALCIUM 8.1 mg/dL (8.4-11.0); CREATININE 0.59 mg/dL (0.55-1.30); POTASSIUM 3.8 mmol/L (3.5-5.1)
[2021-05-30 08:00] VITALS: BP_SYST 107
[2021-05-30] MEDS: NACL 0.9% 1,000 ML IV SCH ×2 (08:30→23:26)
[2021-05-30] MEDS: GABAPENTIN 300 MG CAPSULE PO SCH ×3 (08:30→20:42)
[2021-05-30] MEDS: CEFEPIME 2 GM in D5W 100 ML IV SCH ×2 (08:30→20:42)
[2021-05-30] MEDS: CLOPIDOGREL BISULFATE 75 MG TABLET PO SCH (08:31)
[2021-05-30] MEDS: ASPIRIN 81 MG TABLET(ECOTRIN) PO SCH (08:31)
[2021-05-30] MEDS: DOCUSATE SODIUM 100 MG CAPSULE PO PRN (08:32)
[2021-05-30] MEDS: HEPARIN SODIUM,PORCINE 5,000 UNITS/ML VIAL SUBCUT SCH ×2 (08:33→20:46)
[2021-05-30] MEDS: BALSAM PERU/CASTOR OIL 56.7 GM OINT...G. TP SCH (08:44)
[2021-05-30] MEDS: INSULIN REGULAR, HUMAN 100 UNITS/ML, 10 ML VIAL (humuLIN R) SUBCUT PRN ×3 (12:11→20:53)
[2021-05-30 16:00] VITALS: BP_SYST 110
--- NOTE | 2021-05-30 17:00 | NUR ---
NOTES 0800- TOOKE BREAKFAST, DENIES PAIN 1200- SEEN BY DR CHANG, STILL WITH ANTECUBITAL AREA FROM PREVIOUS IV SITE TENDER, APPLIED WARM COMPRESS 1700 - DRESSING CHANGED ON RIIGHT FOOT.
[2021-05-30 20:00] VITALS: BP_SYST 121
[2021-05-30] MEDS: metroNIDAZOLE 500 mg/NS 100 ML IV SCH (23:23)
[2021-05-31 00:10] VITALS: BP_SYST 114
--- NOTE | 2021-05-31 02:37 | NUR ---
1999:INITIAL NOTES: PT IS AWAKE , ALERT AND ORIENTED , NOT IN ANY ACUTE DISTRESS; VITALS ARE STABLE ; ASSESSMENT COMPLETED ; NOTICED DRESSING TO THE R FOOT , PT STATED HE FEELS LIKE HIS LEG IS NUMB , ABLE TO FEEL THE TOUCH , PT IS DIABETIC ; PICC LINE TO RIGHT UPPER ARM , DOUBLE LUMEN ; WITH GOOD BLOOD RETURN ; IV FLUID IS INFUSING WELL . BED IN LOW AND LOCK POSITION , CALL PATTERSON IN REACH ; ENCOURAGED PT TO CALL FOR ANY ASSIST ;WILL CONTINUE TO MONITOR PT . 0010: PT IS COMFORTABLE , SLEEPING , RESPIRATION IS EVEN AND NON LABORED ; VITALS CHECKED AND STABLE . Addendum: 05/31/21 at 0355 by Soy Hernandez RN AMENDING TO 1999 NOTE: PTS R AC AND ABOVE (BELOW THE PICC LINE SITE )IS RED AND HARD TO TOUCH , IS AWARE ; PT HAD V DOPPLER FOR THAT ARM AND NO SIGNS OF DVT EXCEPT BRACHIAL BASILIC VEIN NOT VISUALIZED , PER REPORT INÉS ECHOLS ALSO CHECKED IT AND PER REPORT PICCLINE IS OK TO USE IT IS AT THE OLD IV ACCESS SITE .
[2021-05-31] MEDS: metroNIDAZOLE 500 mg/NS 100 ML IV SCH ×3 (06:48→22:52)
--- NOTE | 2021-05-31 07:44 | NUR ---
CLOSING NOTES: PT IS AWAKE , NOT IN ANY ACUTE DISTRESS; REPORT GIVEN TO RN . ALL NEEDS ATTENDED .
[2021-05-31 08:08] VITALS: BP_SYST 99
[2021-05-31 08:38] LABS: BASOPHILS % (AUTO) 0.6 % (0.0-2.0); EOSINOPHILS # (AUTO) 0.2 K/uL (0.0-0.4); HEMATOCRIT 29.5 % (36-54); HEMOGLOBIN 9.7 g/dL (14.0-18.0); LYMPHOCYTES # (AUTO) 2.3 K/uL (1.0-5.5); LYMPHOCYTES % (AUTO) 34.4 % (20.5-51.5); MEAN CORPUSCULAR HEMOGLOBIN 27 pg (27-31); MEAN CORPUSCULAR HGB CONC 33 % (32-36); MEAN CORPUSCULAR VOLUME 81 fL (79.0-98.0); MONOCYTES # (AUTO) 0.5 K/uL (0.0-1.0); MONOCYTES % (AUTO) 7.1 % (1.7-9.3); NEUTROPHILS # (AUTO) 3.7 K/uL (1.8-7.7); NEUTROPHILS % (AUTO) 54.9 % (40.0-70.0); PLATELET COUNT (AUTO) 415 K/uL (130-430); RED BLOOD CELL COUNT(AUTO) 3.64 MIL/uL (4.2-6.2); RED CELL DISTRIBUTION WIDTH 14.4 % (9.0-15.0); WHITE BLOOD COUNT (AUTO) 6.8 K/uL (4.8-10.8)
[2021-05-31] MEDS ORDERED: CEFE2FRO IV (08:41)
[2021-05-31] MEDS ORDERED: METR-154 PO (08:41)
[2021-05-31] MEDS ORDERED: LACT1CAP62 PO (08:41)
[2021-05-31] MEDS ORDERED: ASPI-1393 PO (08:43)
[2021-05-31] MEDS ORDERED: CLOP75TA32 PO (08:43)
[2021-05-31] MEDS ORDERED: LIP20 PO (08:43)
[2021-05-31 08:53] LABS: CALCIUM 8.1 mg/dL (8.4-11.0); CREATININE 0.58 mg/dL (0.55-1.30); TOTAL BILIRUBIN 0.2 mg/dL (0.0-1.0)
[2021-05-31] MEDS: CLOPIDOGREL BISULFATE 75 MG TABLET PO SCH (09:24)
[2021-05-31] MEDS: ASPIRIN 81 MG TABLET(ECOTRIN) PO SCH (09:24)
[2021-05-31] MEDS: GABAPENTIN 300 MG CAPSULE PO SCH ×3 (09:24→21:08)
[2021-05-31] MEDS: CEFEPIME 2 GM in D5W 100 ML IV SCH ×2 (09:25→21:08)
[2021-05-31] MEDS: HEPARIN SODIUM,PORCINE 5,000 UNITS/ML VIAL SUBCUT SCH ×2 (09:38→21:09)
--- NOTE | 2021-05-31 10:48 | NUR ---
Discharge Planning: JVP faxed pt order for IV Meds to [facility] [phone] to follow up Addendum: 05/31/21 at 1602 by Ofelia MAURICIO JVP faxed pt referral to [facility] [phone] to follow up
[2021-05-31] MEDS: INSULIN REGULAR, HUMAN 100 UNITS/ML, 10 ML VIAL (humuLIN R) SUBCUT PRN ×3 (12:02→21:19)
[2021-05-31 12:41] VITALS: BP_SYST 124
--- NOTE | 2021-05-31 13:44 | NUR ---
LATE ENTRY DUE TO CARE 0800- PT STABLE NOT IN ACUTE DISTRESS. VITALS STABLE. DENIES ANY PAIN OR ORTHER DISCOMFORT. IVF INFUSING WELL. INDIGO PICC LINE DRESSING CLEAN DRY AND INTACT. FLUSHED WELL WITH GOOD BLOOD RETURN.CALL LIGHT WITHJIN REACH. POC DISCUSSES WITH PT. VERBAL;IZED UNDERSTANDING. 1000- SEEN BY DR VALENTIN. PT AMBULATED TO BATHROOM WITH STADY GAIT. 1300- PT STABLE NOT IN ACUTE DISTRESS.
[2021-05-31] MEDS: BALSAM PERU/CASTOR OIL 56.7 GM OINT...G. TP SCH (15:09)
--- NOTE | 2021-05-31 15:16 | NUR ---
CM: Discharge barrier: no accepting home health yet, IV ABX is being set up . Pt can be discharged once the HH is arranged.
[2021-05-31 15:35] VITALS: BP_SYST 121
--- NOTE | 2021-05-31 16:00 | NUR ---
WOUND RE-EVALUATION: Late note for 1600 secondary to patient care. Wound Consult received from Dr. Bourgeois. Thank you, Dr. Bourgeois, for the consult. Patient received in a [place] Bed with an Isoflex BRAD mattress, awake, alert, and oriented. Patient is able to turn in bed independently. Robin Score is a 15. Past Medical History: Diabetes Mellitus, Hypertension, Dyslipidemia, Peripheral Vascular Disease, right toe amputation in March,. Microbiology: Blood culture results x2 negative. Wound culture of foot results positive for Proteus vulgaris and Staph aureus. Surgical wound culture results positive for Proteus vulgaris, Klebsiella oxytoca and Staph aureus (Aerobic), and Bacteroides fragilis (beta-lactamase positive, Anaerobic). Intrinsic factors that delay wound healing: Diabetes Mellitus, Peripheral Vascular Disease, Extrinsic factors that delay wound healing: Decreased mobility. Wound Assessment: 1. Right Foot First Metatarsal head, Medial aspect: Diabetic Ulcer surgical wound site (s/p right toe amputation in March,), present on admission. Wound is s/p debridement by Dr. Bourgeois on 05/26/2021. Wound site is surgically closed with sutures and scattered black scab material. Small open area, with 50% dark red tissue, and 50% yellow. Site is macerated. No odor, scant sanguineous drainage. Meryl-wound intact. Site measures 1.0 cm x 7.5 cm. Recommend: Cleanse wound with normal saline. Apply SurePrep to meryl-wound. Apply alginate dressing to entire incision site, and wrap with same Justin wrap used in site 2. Perform wound care daily, and as needed for dressing soiling or dislodgement. 2. Right Foot Fifth Metatarsal head, Plantar aspect: Diabetic ulcer, present on admission. Wound bed has 70% pink tissue, 3% yellow tissue (wound bed is circular with 45% black eschar vs black callus on lateral border of wound. No odor, scant sanguineous drainage. Periwound intact, callused. Wound measures 2.9 cm x 3.2 cm. Recommend: Cleanse wound with normal saline. Apply SurePrep to meryl-wound. Apply Venelex ointment to wound bed. Cover with foam dressing and wrap with same Justin wrap used in site 1. Perform wound care daily, and as needed for dressing soiling or dislodgement. 3. Right Dorsal Foot: Area of dark discolored skin that was on last assessment firm. Site now has wrinkly skin with soft, boggy feel. No odor, no drainage. Site measures 3.1 cm x 2.4 cm. Recommend: Apply alginate dressing to site, and wrap with same Justin wrap used in sites 1 and 2. Perform site care daily, and as needed for dressing soiling or dislodgement. Also recommend: Encourage patient to self-reposition every 2 hours. Off-load pressure areas with pillows for pressure re-distribution. Offload, elevate and float bilateral heels with pillows. Perform skin care and monitor skin integrity Q shift. Recommend same treatments for home with possible home health.
--- NOTE | 2021-05-31 19:30 | NUR ---
CLOSING NOTES PT STABLE NOT IN ACUTE DISTRESS. REPORT GIVEN TO RN ALL NEEDS ATTNDED.
[2021-05-31 20:35] VITALS: BP_SYST 104
[2021-06-01 00:55] VITALS: BP_SYST 105
[2021-06-01] MEDS: metroNIDAZOLE 500 mg/NS 100 ML IV SCH ×3 (06:20→22:32)
[2021-06-01] MEDS: INSULIN REGULAR, HUMAN 100 UNITS/ML, 10 ML VIAL (humuLIN R) SUBCUT PRN ×3 (06:25→16:12)
--- NOTE | 2021-06-01 08:03 | NUR ---
Opening notes: Patient sitting on bed eating breakfast. breathing even and non labored to RA. Denies any discomfort at this time. Fall, safety and aspiration measures reinforced. Call light within reach.
[2021-06-01 08:15] VITALS: BP_SYST 105
--- NOTE | 2021-06-01 09:13 | NUR ---
Discharge Planning: DCP followed up with pt order for IV Meds to [facility] [phone] DCP spoke to [facility] accepting pt need RX order, DCP to follow up DCP followed up with pt referral for intake [facility]-[phone], DCP to follow up. Addendum: 06/01/21 at 1025 by Ofelia MAURICIO JVP followed up with pt referral for intake [facility]-[phone] declined due to insurance. STANLEY faxed pt referral to [facility] [phone] JV to follow up. Addendum: 06/01/21 at 1514 by Ofelia Diego DP STANLEY followed up on pt referral to [facility] [phone] cannot take wound care pt. DCP faxed to [phone], clinically pt accepted waiting for auth.
[2021-06-01] MEDS: ASPIRIN 81 MG TABLET(ECOTRIN) PO SCH (09:28)
[2021-06-01] MEDS: CLOPIDOGREL BISULFATE 75 MG TABLET PO SCH (09:28)
[2021-06-01] MEDS: GABAPENTIN 300 MG CAPSULE PO SCH ×3 (09:28→20:46)
[2021-06-01] MEDS: CEFEPIME 2 GM in D5W 100 ML IV SCH ×2 (09:29→20:47)
[2021-06-01] MEDS: HEPARIN SODIUM,PORCINE 5,000 UNITS/ML VIAL SUBCUT SCH ×2 (09:30→20:50)
[2021-06-01] MEDS: BALSAM PERU/CASTOR OIL 56.7 GM OINT...G. TP SCH (09:31)
[2021-06-01 12:15] VITALS: BP_SYST 107
--- NOTE | 2021-06-01 14:29 | NUR ---
WOUND CARE DONE: WOUND CARE DONE AND PHOTO TAKEN.
[2021-06-01 17:00] VITALS: BP_SYST 111
--- NOTE | 2021-06-01 18:38 | NUR ---
CLOSING NOTES: Patient sitting on bed eating dinner. No s/s of acute distress noted. Fall, safety and aspiration measures provided. Call light within reach.
--- NOTE | 2021-06-01 20:00 | NUR ---
CHANGE OF SHIFT; checked pt. sleeping, no complaints of discomfort at this time. awakened, pt. was sleeping. IV PICC line on rt. upper arm. S/P debridement of rt. great toe, dressing intact. repositioned self. schedule for IV antibiotics. call light within reach.
[2021-06-01 20:15] VITALS: BP_SYST 93
--- NOTE | 2021-06-01 21:00 | NUR ---
NOTES: BS checked 223. sliding scale coverage given.
--- NOTE | 2021-06-02 01:30 | NUR ---
NOTES: pt. sleeping when checked. IV tko.
[2021-06-02 02:00] VITALS: BP_SYST 98
--- NOTE | 2021-06-02 04:00 | NUR ---
NOTES: condition unchanged. continue to monitor.
[2021-06-02] MEDS: metroNIDAZOLE 500 mg/NS 100 ML IV SCH ×3 (05:14→22:09)
[2021-06-02] MEDS: INSULIN REGULAR, HUMAN 100 UNITS/ML, 10 ML VIAL (humuLIN R) SUBCUT PRN ×4 (06:33→22:23)
--- NOTE | 2021-06-02 06:46 | NUR ---
CLOSING NOTES; IV antibiotic in progress. needs attended. rt. foot dressing intact, keep elevated with pillow. BS checked 157, sliding scale coverage given. for further care and assistance. call light within reach.
[2021-06-02 08:00] VITALS: BP_SYST 92
[2021-06-02] MEDS: GABAPENTIN 300 MG CAPSULE PO SCH ×3 (08:34→22:11)
[2021-06-02] MEDS: DOCUSATE SODIUM 100 MG CAPSULE PO PRN (08:34)
[2021-06-02] MEDS: CEFEPIME 2 GM in D5W 100 ML IV SCH ×2 (08:34→23:40)
[2021-06-02] MEDS: CLOPIDOGREL BISULFATE 75 MG TABLET PO SCH (08:35)
[2021-06-02] MEDS: ASPIRIN 81 MG TABLET(ECOTRIN) PO SCH (08:35)
[2021-06-02] MEDS: BALSAM PERU/CASTOR OIL 56.7 GM OINT...G. TP SCH (08:36)
[2021-06-02] MEDS: HEPARIN SODIUM,PORCINE 5,000 UNITS/ML VIAL SUBCUT SCH ×2 (08:36→22:11)
[2021-06-02 12:37] VITALS: BP_SYST 98
--- NOTE | 2021-06-02 15:08 | NUR ---
alert, oriented, no complaint of pain, nor discomfort on R foot, both lateral sides, wounds cleansed and new dressings applied. on double abx ( Cefepime and flagyl ivpb)
[2021-06-02 16:00] VITALS: BP_SYST 110
[2021-06-02 20:00] VITALS: BP_SYST 100
[2021-06-02] MEDS ORDERED: CEFEPIME 2 GM/VIAL (MAXIPIME) ONE (23:18)
[2021-06-03 05:59] VITALS: BP_SYST 105
[2021-06-03] MEDS: metroNIDAZOLE 500 mg/NS 100 ML IV SCH ×2 (06:47→14:00)
[2021-06-03] MEDS: INSULIN REGULAR, HUMAN 100 UNITS/ML, 10 ML VIAL (humuLIN R) SUBCUT PRN ×2 (06:55→12:05)
[2021-06-03 08:00] VITALS: BP_SYST 98
[2021-06-03] MEDS: HEPARIN SODIUM,PORCINE 5,000 UNITS/ML VIAL SUBCUT SCH (09:00)
[2021-06-03] MEDS: CEFEPIME 2 GM in D5W 100 ML IV SCH (09:08)
[2021-06-03] MEDS: GABAPENTIN 300 MG CAPSULE PO SCH ×2 (09:08→16:18)
[2021-06-03] MEDS: BALSAM PERU/CASTOR OIL 56.7 GM OINT...G. TP SCH (09:08)
[2021-06-03] MEDS: ASPIRIN 81 MG TABLET(ECOTRIN) PO SCH (09:08)
[2021-06-03] MEDS: CLOPIDOGREL BISULFATE 75 MG TABLET PO SCH (09:08)
[2021-06-03 09:24] VITALS: BP_SYST 98
[2021-06-03 12:00] VITALS: BP_SYST 101
--- NOTE | 2021-06-03 13:45 | NUR ---
Discharge Planning: DCP followed up with Meagan at [facility]-[phone] auth still pending; DCP called [facility] [phone] Opt#[phone]. DCP spoke to rep, looked up pending auth status still pending. [facility] has 72hrs to respond. [facility]eli[facility]ionne Curriejanel [phone] still on hold for IV meds delivery. DCP to follow up. Addendum: 06/03/21 at 1520 by Ofelia MAURICIO [phone] received auth, DCP called [facility] Curriejanel [phone] [facility] will contact family and arranged medication delivery. DCP made CM aware. Disposition 01
[2021-06-03 19:01] VITALS: BP_SYST 101
[2021-06-03 20:23] VITALS: BP_SYST 102
--- NOTE | 2021-06-03 21:15 | NUR ---
PATIENT DISCHARGED TO HOME VIA PERSONAL CAR IN NO ACUTE DISTRESS. PATIENT'S CAME AND TOOK HIM HOME. DISCHARGED INSTRUCTIONS GIVEN AND PATIENT VERBALIZED UNDERSTANDING OF THE INSTRUCTION INCLUDING THE CONTINUATION OF THE MEDS, HOME HEALTH SERVICES. PATIENT VERBALIZED THAT HIS FAMILY RECEIVED HIS MEDS ALREADY. PT'S VITAL SIGNS STABLE: BP 102/66; HR 72; RR 18; O2 SAT ON RA 96%. R FOOT DRESSING WAS DRY AND INTACT. REDONE BANDAGE DRESSING AND SUPPORTED WITH THE TAPE. PATIENT IS HEEDLED TO BATHING ROOM
== END 2021-06-03 21:15 | disposition home health service (06) | DRG 314 ==
LOC: SED 12:22 → STU 05-25 02:21 → SMU 05-26 18:24
PROVIDERS: ADMIT General Practice; ATTEND General Practice
PROC: 0QBN0ZZ Excision of Right Metatarsal, Open Approach (ICD-10-PCS; principal; 2021-05-26 14:45)
PROC: 02HV33Z Insertion of Infusion Device into Superior Vena Cava, Percutaneous Approach (ICD-10-PCS; 2021-05-28)
PROC: B548ZZA Ultrasonography of Superior Vena Cava, Guidance (ICD-10-PCS; 2021-05-28)
DX: T87.53 Necrosis of amputation stump, right lower extremity (principal); E44.0 Moderate protein-calorie malnutrition; I96 Gangrene, not elsewhere classified; E11.52 Type 2 diabetes mellitus with diabetic peripheral angiopathy with gangrene; L03.115 Cellulitis of right lower limb; E11.40 Type 2 diabetes mellitus with diabetic neuropathy, unspecified; E11.69 Type 2 diabetes mellitus with other specified complication; M86.8X7 Other osteomyelitis, ankle and foot; I10 Essential (primary) hypertension; E78.5 Hyperlipidemia, unspecified; Z20.822 Contact with and (suspected) exposure to COVID-19; Y82.8 Other medical devices associated with adverse incidents; Z89.411 Acquired absence of right great toe; Z68.26 Body mass index [BMI] 26.0-26.9, adult; Y92.89 Other specified places as the place of occurrence of the external cause
CPT/HCPCS: 36415; 71045; 80048; 80053; 80202; 81000; 82948; 82962; 83036; 83605; 83735; 84484; 85025; 85610-TC; 85651-TC; 85730-TC; 87040; 87070-TC; 87075-TC; 87081; 87086; 87186-TC; 88304; 88311; 93005; 93923; 93971; 94010; 94760; 96365; 96372; 99285; G0378; J0692; J0696; J1644; J1815; J2250; J2270; J2405; J2704; J3370; J3490; J7030; J7050; J7060; U0003